=== PATIENT | male | born 1960 | race Caucasian/White ===

== ENCOUNTER 2024-08-22 12:38 | Emergency (ER) | payer OTHER, SELFPAY ==
[2024-08-22 12:50] VITALS: BP 128/79
[2024-08-22 13:15] LABS: % Basophils 0.8 % (0-2); % Eosinophils 0.5 % (0-6); % Immature Granulocytes 0.4 % (0-0.5); % Lymphocytes 26.9 % (20.5-51.1); % Monocytes 9.6 % (1.7-9.3); % Neutrophils 61.8 % (42.2-75.2); Absolute Basophils 0.1 10^3/uL (0-0.2); Absolute Lymphocytes 2.1 10^3/uL (1.2-3.4); Absolute Monocytes 0.7 10^3/uL (0.1-0.6); Absolute Neutrophils 4.7 10^3/uL (1.4-6.5); Hemoglobin 14.9 g/dL (13.0-18.0); Mean Corp Hgb Conc. 34.7 g/dL (33.0-37.0); Mean Corpuscular Volume 92.5 fL (80.0-94.0); Nucleated Red Blood Cells % 0 % (-); Platelet Count 196 10^3/uL (130-400); Red Blood Cell Count 4.65 10^6/uL (4.70-6.10); Red Cell Dist. Width 13.2 % (11.5-14.5); White Blood Cell Count 7.6 10^3/uL (4.8-10.8)
[2024-08-22 13:33] LABS: ALT (SGPT) 23 U/L (0-50); AST (SGOT) 23 U/L (17-59); Albumin 4.4 g/dl (3.5-5.0); Alkaline Phosphatase 58 U/L (38-126); Blood Urea Nitrogen 7 mg/dl (9-20); Calcium 9.5 mg/dl (8.4-10.2); Carbon Dioxide 29 mmol/L (22-30); Chloride 103 mmol/L (98-107); Glucose 128 mg/dl (70-99); Lipase 66 U/L (23-300); Potassium 3.8 mmol/L (3.5-5.1); Sodium 143 mmol/L (135-145); Total Bilirubin 0.3 mg/dl (0.2-1.3); Total Protein 6.7 g/dl (6.3-8.2); eGFR > 60.00
[2024-08-22 13:55] LABS: Urine Albumin Negative (Neg - Trace); Urine Bilirubin Negative (Negative); Urine Character Clear (Clear); Urine Color Yellow; Urine Glucose Negative (Negative); Urine Ketone Negative (Negative); Urine Leukocyte Trace (Negative); Urine Nitrite Negative (Negative); Urine Occult Blood Negative (Negative); Urine Specific Gravity 1.005 (<1.030); Urine Urobilinogen Negative (Neg - 1+)
[2024-08-22 14:08] LABS: Urine Bacteria Few (Negative); Urine Red Blood Cell 0-2 /HPF (0-2); Urine Squamous Cell 0-2 /LPF (Few); Urine White Cell 0-2 /HPF (0-5)
[2024-08-22 15:17] VITALS: BP 145/98
--- NOTE | 2024-08-22 17:20 | ED.GENMED ---
History of Present Illness
General
Chief Complaint: Abdominal Pain
Time Seen by Provider: 08/22/24 15:35
History of Present Illness
History of Present Illness:
63-year-old male with history of hypertension and hyperlipidemia presents to the emergency department for evaluation of upper abdominal pain has been ongoing for the past 3 days. Is worse with movement and worse when he touches the area. Denies
any associated nausea, vomiting, diarrhea, fever, chills, or sweats. No history of abdominal surgeries. Denies any acute traumatic injuries.
Review of Systems
Review of Systems
Allergies reviewed?: Yes
All Other Systems: ROS reviewed and negative except as documented in HPI and ROS
Phy Exam
Physical Exam
Physical Exam:
GEN: Well appearing, NAD, WDWN
HEENT: Oral mucosa moist, no scleral icterus
Cardiac: Regular rate
Lung: No respiratory distress, no tachypnea
Abdomen: Soft, reproducible tenderness diffusely across the upper abdomen with no rigidity or masses, no peritoneal signs
MSK: No gross deformity or injuries
Skin: Good color, no pallor or jaundice, no rashes
Neuro: AO x3, moves all extremities freely
Psych: Calm, cooperative
Course
Orders/Labs/Results
Orders:
Orders
08/22/24 12:53
Electrocardiogram (*1) Urgent
Reason for Study: Abdominal Pain
EKG- Treatment ONCE
08/22/24 13:03
Complete Blood Count/With Diff Urgent
Comprehensive Metabolic Panel Urgent
Lipase Urgent
08/22/24 13:09
Urinalysis Reflex To Culture Urgent
Date Specimen was Collected: 08/22/24
Time Specimen was Collected: 12:53
Urine Microscopic Reflex Cult Urgent
08/22/24 15:43
US Abdomen Complete/Upper Urgent
Comment:
Reason For Exam: upper abd pain
Abnormal Lab Results
08/22/24 08/22/24
13:03 13:09
RBC 4.65 L 10^6/uL
(4.70-6.10)
MCH 32.0 H pg
(27.0-31.0)
MPV 11.0 H fL
(7.4-10.4)
Absolute Monos (auto) 0.7 H 10^3/uL
(0.1-0.6)
Monocytes % 9.6 H %
(1.7-9.3)
BUN 7 L mg/dl
(9-20)
Glucose 128 H mg/dl
(70-99)
Leukocyte Esterase Rfl Trace A
(Negative)
Urine Bacteria (Reflex) Few A
(Negative)
08/22/24 13:03
08/22/24 13:03
Vital Signs
Initial and Last Documented VS:
Initial Vital Signs
Temp Pulse Resp BP Pulse Ox
98.4 F 69 16 128/79 98
08/22/24 12:50 08/22/24 12:50 08/22/24 12:50 08/22/24 12:50 08/22/24 12:50
Last Documented Vital Signs
Temp Pulse Resp BP Pulse Ox
98.4 F 62 18 145/98 98
08/22/24 12:50 08/22/24 15:17 08/22/24 15:17 08/22/24 15:17 08/22/24 15:17
MDM/Problems Addressed
MDM/Problems Addressed:
Labs and urinalysis unremarkable. Ultrasound obtained showing no evidence for acute disease. Do not see indication for CT scan at this time. Unclear etiology, recommend supportive care with Tylenol and ibuprofen and primary care follow-up should
symptoms worsen
*Critical Care Note
Total Time (30-74mins, 75-104mins- exclusive of procedures): Not Applicable
ED Attending Note
-
Portions of this chart may have been created with voice recognition software.� Occasional wrong word or��sound alike� substitutions may have occurred due to the inherent limitations of voice recognition software.
Discharge Plan
Departure
Patient Disposition: Home (Routine Discharge)
Date of Disposition: 08/22/24
Time of Disposition: 17:20
Patient with high blood pressure during this ER visit?: No
Discharge Problem:
Acute upper abdominal pain
Instructions: Abdominal Pain
Referrals:
Ran Wills DO [Family Provider] -
Activity Restrictions/Additional Instructions:
The cause of your pain is not clear at this time. Please follow with your primary care physician if it does not improve within the next 3 to 5 days
Interventions
Interventions:
*Risk Screen - Suicide Last Done: 08/22/24 12:50
*Neglect/Abuse Screening Last Done: 08/22/24 12:50
ED- Fall Risk Assessment Last Done: 08/22/24 18:08
*Nursing Disposition Last Done: 08/22/24 18:08
NS-Vyefuo-Eyuwpgszft Assessment Last Done: 08/22/24 15:36
Discharge Date and Time
Discharge Date/Time: 08/22/24 18:09
Print Language: [id number]
== END 2024-08-22 18:09 | disposition home or self-care (01) ==
LOC: EMR 12:38
PROVIDERS: Emergency Medicine; EMERGENCY PHYSICIAN Emergency Medicine; FAMILY PHYSICIAN Family Medicine
DX: R10.10 Upper abdominal pain, unspecified (principal); I10 Essential (primary) hypertension; E78.00 Pure hypercholesterolemia, unspecified
CPT/HCPCS: 99284; 76700; 80053; 81003; 81015; 83690; 85025; 93005